=== PATIENT | female | born 1970 | race Caucasian/White ===

== ENCOUNTER → 2017-09-08 15:37 | Outpatient (CLI) | payer BC, SELFPAY ==
[2017-09-08 17:31] LABS: Free Thyroxine Index 3.9 ug/dL (5.93-13.13); T4 (Thyroxine) 10.7 ug/dl (4.7-13.3); Thyroid Stimulating Hormone 0.44 uIU/ml (0.358-3.740); Triiodothryronine (T3) Uptake 36 % (31-39)
[2017-09-12 12:36] LABS: Thyroid Peroxidase Antibodies 11 IU/mL (0-34)
== END ==
PROVIDERS: Visit Provider Otolaryngology
DX: E03.9 Hypothyroidism, unspecified (principal)
CPT/HCPCS: 36415; 84436; 84443; 84479; 86376

== ENCOUNTER → 2017-09-11 09:59 | Outpatient (CLI) | payer BC, SELFPAY ==
--- NOTE | 2017-09-11 10:10 | US_ITS ---
US thyroid HISTORY: ITS.REASON: Hypothyroid ORDERING PHYSICIAN: Popeye Galaviz MD PATIENT AGE: 47 years FINDINGS: The right lobe is 4 x 0.8 x 1.7 cm. The left lobe is 3.8 x 0.9 x 1.1 cm. The isthmus is normal at 2 mm. Homogeneous echogenicity of both lobes of the thyroid gland. No nodules. IMPRESSION: Unremarkable thyroid ultrasound
== END ==
PROVIDERS: PCP Family Medicine; Visit Provider Otolaryngology
DX: E03.9 Hypothyroidism, unspecified (principal)
CPT/HCPCS: 76536